=== PATIENT | female | born 1960 | race Caucasian/White ===

== ENCOUNTER → 2021-08-03 | Outpatient (CLI) | payer MEDICARE, OTHER ==
[~2021-08-03] MED LIST: ATROVENT HFA12.9 GM INH; BENTYL 10MG CAP10 MG PO; CRESTOR 10 MG T10 MG PO; CYCLOBENZAPRINE10 MG PO; DICLOFENAC GEL 1% TOP; DIFLUPREDNATE5 ML EYERT; HYDROCODONE-AC1 EACH PO; LANTUS SOL100 UNIT/1 SQ; LEVOTHYROXINE50 MCG PO; LINZESS290 MCG PO; LOW DOSE ASPIRI81 MG PO; NICOTINE PATCH TOP; NORVASC5 MG PO; OFLOXACIN5 ML EYERT; OMEPRAZOLE40 MG PO; PROAIR HFA8.5 GM INH; SINGULAIR10 MG PO; VOLTAREN EC 7575 MG PO; ZOLOFT100 MG PO
== END ==
LOC: OPSV2 10:00
PROVIDERS: Anesthesiology
DX: Z01.812 Encounter for preprocedural laboratory examination (principal)
CPT/HCPCS: 36415; 80048